=== PATIENT | female | born 2000 | race Caucasian/White ===

== ENCOUNTER 2020-05-08 17:21 | Inpatient (IN) | payer OTHER ==
[2020-05-08 18:22] LABS: APPEARANCE,URINE SLIGHTLY-CLOUDY; BILIRUBIN,URINE NEGATIVE (NEGATIVE); COLOR,URINE YELLOW; GLUCOSE, URINE NEGATIVE (NEGATIVE); KETONES,URINE NEGATIVE (NEGATIVE); LEUKOCYTE ESTERASE,URINE LARGE (NEGATIVE); NITRITE,URINE NEGATIVE (NEGATIVE); PROTEIN,URINE NEGATIVE (NEGATIVE); URINE SPECIFIC GRAVITY 1.008; UROBILINOGEN,URINE NEGATIVE mg/dL (<2.0)
[2020-05-08 18:46] LABS: URINE AMPHETAMINES SCREEN NEGATIVE; URINE BARBITURATES SCREEN NEGATIVE; URINE BENZODIAZEPINES SCREEN NEGATIVE; URINE COCAINE SCREEN NEGATIVE; URINE MARIJUANA (THC) SCREEN NEGATIVE; URINE METHADONE SCREEN NEGATIVE; URINE PHENCYCLIDINE SCREEN NEGATIVE
[2020-05-08] MEDS ORDERED: LIDOCAINE 1% INJ-PF (10 MG/ML) 30 ML SDV ONE (21:15)
[2020-05-08] MEDS ORDERED: MISOPROSTOL 0.2 MG TABLET ONE (21:15)
[2020-05-08] MEDS ORDERED: OXYTOCIN 10 UNIT/ML VIAL ONE (21:15)
[2020-05-08] MEDS ORDERED: OXYTOCIN/0.9 % SODIUM CHLORIDE 30 UNIT/500 ML RTUINJ ONE (21:15)
[2020-05-08] MEDS ORDERED: RINGERS SOLUTION,LACTATED 1,000 ML IV PRN (21:16)
[2020-05-08 22:01] LABS: ABSOLUTE LYMPHOCYTES (AUTO) 1.7 10^3/uL (0.5-4.7); ABSOLUTE NEUT (AUTO) 16.3 10^3/uL (1.7-8.2); BASOPHILS % (AUTO) 0.2 % (0-2); EOSINOPHILS % (AUTO) 0.1 % (0-6); HEMATOCRIT 38.5 % (36.0-47.0); HEMOGLOBIN 13.3 g/dL (12.0-15.5); LYMPHOCYTES % (AUTO) 8.9 % (13-45); MEAN CORPUSCULAR HEMOGLOBIN 28.7 pg (27.0-33.4); MEAN CORPUSCULAR HGB CONC 34.5 g/dL (32.0-36.0); MEAN CORPUSCULAR VOLUME 83 fl (80-97); MONOCYTES % (AUTO) 5.2 % (3-13); PLATELET COUNT 314 10^3/uL (150-450); RED BLOOD COUNT 4.63 10^6/uL (3.72-5.28); SEGMENTED NEUTROPHILS % (AUTO) 85.6 % (42-78); TOTAL CELLS COUNTED % (AUTO) 100 %
--- NOTE | 2020-05-09 00:12 | Delivery Summary ---
Del Sum A-C Datetime Report Generated by CPN: 05/09/2020 00:12 DELIVERY PERSONNEL DELIVERY PERSONNEL: [id number] Delivery Doctor:: Greg Cazares MD Labor and Delivery Nurse:: Jaqueline Covarrubias RNteam member Nurse:: Nancy Cobyuston, RN MATERNAL INFORMATION Delivery Anesthesia: None Medications After Delivery: Pitocin 30 Units in 500ml NS/D5W Maternal Complications: None LABOR SUMMARY EDC: 05/06/2020 00:00 No. Babies in Womb: 1 Attempted: No Labor Anesthesia: None LABOR INFORMATION Reason for Induction: Not Applicable Onset of Labor: 05/08/2020 18:13 Complete Dilatation: 05/08/2020 21:19 Oxytocin: N/A Group B Beta Strep: Negative Antibiotics # of Doses: n/a Name of Antibiotic Given: n/a Steroids Given: None Reason Steroids Not Administered: Not Applicable MEMBRANES Membranes Rupture Method: Spontaneous Rupture of Membranes: 05/08/2020 21:34 Length of Rupture (hr): 0.23 Amniotic Fluid Color: Heavy Meconium Amniotic Fluid Amount: Small Amniotic Fluid Odor: Normal STAGES OF LABOR Stage 1 hr: 3 Stage 1 min: 6 Stage 2 hr: 0 Stage 2 min: 29 Stage 3 hr: 0 Stage 3 min: 2 Total Time in Labor hr: 3 Total Time in Labor min: 37 VAGINAL DELIVERY Episiotomy: None (Annotations: Data stored by N on behalf of user) Laceration #1: Vaginal Laceration Extension #1: First Degree Laceration Repair: Not Applicable Sponge Count Correct: N/A Sharps Count Correct: Yes CSECTION DELIVERY Primary Indication: N/A CSection Incision: N/A BABY A INFORMATION Delivery Date/Time: 05/08/2020 21:48 Method of Delivery: Vaginal Nurse Controlled Delivery: No Born in Route : No : N/A Forceps: N/A Vacuum Extraction: N/A Shoulder Dystocia : No PRESENTATION/POSITION BABY A Presentation: Cephalic Cephalic Presentation: N/A Vertex Position: Left Occipital Anterior Breech Presentation: N/A PLACENTA INFORMATION BABY A Placenta Delivery Time : 05/08/2020 21:50 Placenta Method of Delivery: Spontaneous Placenta Status: Delivered SCORES BABY A Heart Rate 1 min: >100 bpm Resp Effort 1 min: Good Cry Reflex Irritability 1 min: Cough or Sneeze or Pulls Away Muscle Tone 1 min: Active Motion Color 1 min: Blue/Pale Resuscitation Effort 1 min: Tactile Stimulation SCORE 1 MIN: 8 Heart Rate 5 min: >100 bpm Resp Effort 5 min: Good Cry Reflex Irritability 5 min: Cough or Sneeze or Pulls Away Muscle Tone 5 min: Active Motion Color 5 min: Body [place], Extremities Blue Resuscitation Effort 5 min: Tactile Stimulation SCORE 5 MIN: 9 INFANT INFORMATION BABY A Gestational Age at Delivery: 40.2 Gestational Status: Full Term- 39- 40.6 Weeks Infant Outcome : Liveborn Condition : Stable Infant Sex: Female IDENTIFICATION BABY A Verification Date/Time: 05/08/2020 22:22 ID Band Number: [id number] Mother's Name Verified: Yes RN Verifying : CLAUS Billings Additional Verifying Personnel: Joseph Roy RN WEIGHT/LENGTH BABY A Birthweight (gm): 3374 Weight (lb): 7 Infant Weight (oz): 7 Infant Length (in): 19.50 Length (cm): 49.53 CORD INFORMATION BABY A No. Cord Vessels: 3 Nuchal Cord : N/A (Annotations: Data stored by [facility] on behalf of user) Infant Suction: Mouth ASSESSMENT BABY A Complications: None Respirations: Grunting Skin to Skin: Yes Skin to Skin Time (min): 5 Cattle Tester/ALS Called : No Care By: Elizabeth Covarrubias, RN Transferred To: Remains with Mother BABY B INFORMATION : N/A SIGNATURES Signature: with User ID: [email or web address]
--- NOTE | 2020-05-09 00:12 | Birth Certificate Data ---
Cert Data Datetime Report Generated by CPN: 05/09/2020 00:12 CERTIFICATE DATA Delivery Provider: Greg Cazares MD (05/08/2020 21:30:Jaqueline Covarrubias RN) 47a. Care: Yes (05/08/2020 21:30:Jaqueline Covarrubias RN) 48a. Number of Prev Live Births: 0 (05/08/2020 21:30:Jaqueline Covarrubias RN) 48b. Now Livin (05/08/2020 21:30:Jaqueline Covarrubias RN) 48c. Live Births Now : 0 (05/08/2020 21:30:QS system process) 48e. Losses: 0 (05/08/2020 21:30:Jaqueline Covarrubias RN) RISK FACTORS IN THIS 49c. Previous Births: 0 (05/08/2020 21:30:Jaqueline Debrahefka, RN) 49f. Previous Cesareans: 0 (05/08/2020 21:30:Jaqueline Marhefka, RN) Mother's Height 50b. Height Inches: 66 (05/08/2020 17:34:QS system process) Mother's Weight 51b. Weight at Delivery (lbs): 211 (05/08/2020 17:34:QS system process) Infections Present/Treated Results this Hospital Visit : Negative (05/08/2020 21:30:Jaqueline Covarrubias RN) Results this Hospital Visit: Negative (05/08/2020 21:30:Jaqueline Covarrubias RN) 53h. Mother Tested for HBsAG: No (05/08/2020 21:30:Jaqueline Covarrubias RN) 53i. Date Tested: 09/06/2019 00:00 (05/08/2020 21:30:Jaqueline Covarrubias RN) 53j. Test Result: Negative (05/08/2020 21:30:Jaqueline Covarrubias RN) Onset of Labor 56a. PROM >12 Hrs: 0.23 (05/08/2020 21:30:QS system process) 56b. Precipitous Labor <3 Hrs: 3 (05/08/2020 21:30:QS system process) 56c. Prolonged Labor > 20 Hrs: 3 (05/08/2020 21:30:QS system process) 57a. Induction of Labor: N/A (05/08/2020 21:30:Nancy Rosa RN) 57c. Non-Vertex Presentation A: N/A (05/08/2020 21:30:Jaqueline Covarrubias RN) 57d. Steroids - Lung Mat: None (05/08/2020 21:30:Jaqueline Covarrubias RN) 57d. Steroids - Lung Mat: Not Applicable (05/08/2020 21:30:Jaqueline Covarrubias RN) 57f. Mat [place] or Temp >100.4: 97.9 (05/08/2020 21:30:Nancy Rosa RN) 57g. Moderate/Heavy Meconium: Heavy Meconium (05/08/2020 21:34:Jaqueline Covarrubias RN) 57h. Intolerance of Labor: N/A (05/08/2020 21:30:Jaqueline Covarrubias RN) 57i. Epidural/Spinal Anesthesia: None (05/08/2020 21:30:Jaqueline Covarrubias RN) Method of Delivery 58a. Forceps - Unsuccessful A: N/A (05/08/2020 21:30:Jaqueline Covarrubias RN) 58b. Vacuum - Unsuccessful A: N/A (05/08/2020 21:30:Jaqueline Covarrubias RN) 58c. Presentation at 58c. Presentation at - A : N/A (05/08/2020 21:30:Jaqueline Covarrubias RN) 58c. Presentation at - A : N/A (05/08/2020 21:30:Jaqueline Covarrubias RN) 58c. Presentation at - A : Cephalic (05/08/2020 21:30:Jaqueline Covarrubias RN) Final Route and Method of Del 58d. Baby A Route/Delivery: Vaginal (05/08/2020 21:30:Jaqueline Covarrubias RN) 58e. Trial of Labor Attempted: No (05/08/2020 21:30:Jaqueline Covarrubias RN) 58e. Trial of Labor Attempted A: N/A (05/08/2020 21:30:Jaqueline Covarrubias RN) 58e. Trial of Labor Attempted B: N/A (05/08/2020 21:30:Jaqueline Marhefka, RN) Maternal Morbidity 59b. 3rd or 4th Degree Lacs: Vaginal (05/08/2020 21:30:Jerad HinesMD (WEB)) 59b. 3rd or 4th Degree Lacs: First Degree (05/08/2020 21:30:[facility]) Birthweight Baby A: 3374 (05/08/2020 21:30:Samantha Rangel RN) 60a. Pounds : 7 (05/08/2020 21:30:QS system process) 60b. Ounces: 7 (05/08/2020 21:30:QS system process) 61. GA at Delivery Baby A: 40.2 (05/08/2020 21:30:Jaqueline Covarrubias RN) : Full Term- 39- 40.6 Weeks (05/08/2020 21:30:QS system process) 62a. 5 Minute Baby A: 9 (05/08/2020 21:30:QS system process)
[2020-05-09] MEDS ORDERED: GLYCERIN/WITCH HAZEL LEAF 1 EACH MED..WIPE TP PRN (00:31)
[2020-05-09] MEDS ORDERED: BENZOCAINE/MENTHOL AEROSOL SPRAY 56 ML TOP PRN (00:31)
[2020-05-09] MEDS ORDERED: ACETAMINOPHEN WITH CODEINE #3 TABLET PO PRN ×2 (00:31)
[2020-05-09] MEDS ORDERED: ACETAMINOPHEN 650 MG SUPP.RECT PR PRN (00:31)
[2020-05-09] MEDS ORDERED: VARICELLA VACC/PF (1350 UNIT/0.5 ML) 0.5 ML VIAL SUBCUT PRN (00:31)
[2020-05-09] MEDS ORDERED: ACETAMINOPHEN 325 MG TABLET PO PRN (00:31)
[2020-05-09] MEDS ORDERED: MEASLES,MUMPS&RUBELLA VACC/PF 0.5 ML VIAL SUBCUT PRN (00:31)
[2020-05-09] MEDS ORDERED: DIPHENHYDRAMINE HCL 25 MG CAPSULE PO PRN (00:31)
[2020-05-09] MEDS ORDERED: FAMOTIDINE 20 MG TABLET PO PRN (00:31)
[2020-05-09] MEDS ORDERED: ZOLPIDEM TARTRATE 5 MG TABLET PO PRN (00:31)
[2020-05-09] MEDS ORDERED: MAGNESIUM HYDROXIDE SUSP 30 ML UDCUP PO PRN (00:31)
[2020-05-09] MEDS ORDERED: DIBUCAINE 1% OINTMENT 28 GM TP PRN (00:31)
[2020-05-09] MEDS ORDERED: MAG HYDROX/AL HYDROX/SIMETH SUSP 30 ML UDCUP PO PRN (00:31)
[2020-05-09] MEDS ORDERED: PSEUDOEPHEDRINE HCL 30 MG TABLET PO PRN (00:31)
[2020-05-09] MEDS ORDERED: DIPH/PERTUSS(ACELL)/TETANUS VAC/PF 0.5 ML SYR (>=10YO) IM PRN (00:31)
[2020-05-09] MEDS: IBUPROFEN 800 MG TABLET PO SCH ×3 (05:12→22:05)
[2020-05-09] MEDS: PRENATAL VITAMIN W DHA CAPSULE PO SCH (09:44)
[2020-05-09] MEDS: SENNOSIDES/DOCUSATE 8.6-50 MG 1 EACH TABLET PO SCH (09:44)
[2020-05-09] MEDS: DOCUSATE SODIUM 100 MG CAPSULE PO SCH ×2 (09:44→18:33)
[2020-05-09] MEDS: FERROUS SULFATE 325 MG TABLET PO SCH ×2 (09:44→18:33)
[2020-05-09] MEDS ORDERED: DSS PO SCH (10:00)
[2020-05-09] MEDS ORDERED: IRON PO SCH (10:00)
[2020-05-09] MEDS ORDERED: PNV PO SCH (10:00)
[2020-05-09] MEDS ORDERED: FOLATE PO SCH (10:00)
[2020-05-09] MEDS ORDERED: DHA PO SCH (10:00)
[2020-05-09] MEDS ORDERED: [UNRECOGNIZED DRUG - OTHER] PO SCH (10:00)
--- NOTE | 2020-05-09 10:44 | PDOC PROGRESS REPORT ---
Subjective-OB Progress Note for:: 05/09/20 - PP Day #1, doing well, no complaints, UOB, voiding, A+, Physical Exam (OB) Vital Signs: Temp Pulse Resp BP Pulse Ox 97.9 F 78 16 115/64 100 05/09/20 07:51 05/09/20 07:51 05/09/20 07:51 05/09/20 07:51 05/09/20 07:51 Intake & Output 05/08/20 05/09/20 05/10/20 06:59 06:59 06:59 Output Total 350 Balance -350 Weight 96.4 kg - General General Appearance: Appears well, Alert - PIH/Pre-Eclampsia DTR's: 2 + Clonus: Negative Headache: Absent Epigastric Pain: No Visual Changes: No - Maternal Morbidity 59. Maternal Morbidity (serious complications experinced by the mother as sociated with labor and delivery: None of the above - Lochia Lochia Amount: Scant < 10 ml Lochia Color: Rubra/Red - Abdomen Description: Soft Hernia Present: No Fundal Description: Firm, Midline Fundal Height: u/u - u/2 - Respiratory Respiratory Status: No respiratory distress - Abdominal Inspection: Normal Distension: No distension - Genitourinary Genitourinary Note: voiding - Extremities Upper extremity: Normal inspection Lower extremities: Normal inspection - Neurological Cognition: Normal Orientation: AAOx4 - Psychological Associated symptoms: Normal affect, Normal mood - Skin Skin Temperature: Warm Skin Moisture: Dry Objective-Diagnostic Laboratory: 05/08/20 21:41 05/08/20 05/08/20 05/08/20 17:26 21:41 21:41 WBC 19.0 H RBC 4.63 Hgb 13.3 Hct 38.5 MCV 83 MCH 28.7 MCHC 34.5 RDW 15.0 H Plt Count 314 Seg Neutrophils % 85.6 H Urine Color YELLOW Urine Appearance SLIGHTLY-CLOUDY Urine pH 7.0 Ur Specific [place] 1.008 Urine Protein NEGATIVE Urine Glucose (UA) NEGATIVE Urine Ketones NEGATIVE Urine Blood NEGATIVE Urine Nitrite NEGATIVE Ur Leukocyte Esterase LARGE H Blood Type A POSITIVE Antibody Screen NEGATIVE Assessment and Plan(PN) - Assessment and Plan (1) (normal spontaneous vaginal delivery) Is this a current diagnosis for this admission?: Yes - Time Spent with Patient Time with patient: Less than 15 minutes Medications reviewed and adjusted accordingly: Yes - Disposition Anticipated Discharge Disposition: Home, Self Care Anticipated Discharge Timeframe: within 24 hours
[2020-05-10] MEDS: IBUPROFEN 800 MG TABLET PO SCH (05:37)
[2020-05-10 06:03] LABS: HEMATOCRIT 34.7 % (36.0-47.0); HEMOGLOBIN 11.6 g/dL (12.0-15.5); MEAN CORPUSCULAR HGB CONC 33.6 g/dL (32.0-36.0); MEAN CORPUSCULAR VOLUME 84 fl (80-97); PLATELET COUNT 264 10^3/uL (150-450); RED BLOOD COUNT 4.15 10^6/uL (3.72-5.28); RED CELL DISTRIBUTION WIDTH 15.5 % (11.5-14.0); WHITE BLOOD COUNT 12.4 10^3/uL (4.0-10.5)
[2020-05-10 07:52] VITALS: BP 105/63
[2020-05-10] MEDS ORDERED: INFLUENZA QUAD (6MOS+) 2020-21 VAC 0.5 ML SYR IM ONE (08:00)
--- NOTE | 2020-05-10 09:00 | PDOC DISCHARGE SUMMARY ---
Impression - Admit/DC Date/PCP Admission Date/Primary Care Provider: 05/08/20 21:21 Discharge Date: 05/10/20 - PP day #2, doing well, A+. - Discharge Diagnosis (1) (normal spontaneous vaginal delivery) Is this a current diagnosis for this admission?: Yes (2) Normal course Is this a current diagnosis for this admission?: Yes - Additional Information Resuscitation Status: Full Code Discharge Diet: As Tolerated, Regular Discharge Activity: Activity As Tolerated, No Lifting Over 10 Pounds, Pelvic Rest Prescriptions: Ibuprofen [Motrin 800 mg Tablet] 800 mg PO Q8 #60 tablet Home Medications: Pnv 102/Iron/Folate 1/Dss/Dha [Vitafol Fe+ Docusate Combo Pck] 1 each PO DAILY 05/08/20 Ibuprofen [Motrin 800 mg Tablet] 800 mg PO Q8 #60 tablet 05/10/20 HPI Reason(s) for Admission: Onset of Labor Procedures: Ultrasound Intrapartum Procedure(s): Spontaneous Vaginal Delivery Complication(s): Laceration-Vaginal Laceration-Degree: 1st Hospital Course 59. Maternal Morbidity (serious complications experinced by the mother associated with labor and delivery: None of the above Results Laboratory Results: WBC 12.4 10^3/uL (4.0-10.5) H 05/10/20 05:34 RBC 4.15 10^6/uL (3.72-5.28) 05/10/20 05:34 Hgb 11.6 g/dL (12.0-15.5) L 05/10/20 05:34 Hct 34.7 % (36.0-47.0) L 05/10/20 05:34 MCV 84 fl (80-97) 05/10/20 05:34 MCH 28.0 pg (27.0-33.4) 05/10/20 05:34 MCHC 33.6 g/dL (32.0-36.0) 05/10/20 05:34 RDW 15.5 % (11.5-14.0) H 05/10/20 05:34 Plt Count 264 10^3/uL (150-450) 05/10/20 05:34 Lymph % (Auto) 8.9 % (13-45) L 05/08/20 21:41 [place] % (Auto) 5.2 % (3-13) 05/08/20 21:41 Eos % (Auto) 0.1 % (0-6) 05/08/20 21:41 Baso % (Auto) 0.2 % (0-2) 05/08/20 21:41 Absolute Neuts (auto) 16.3 10^3/uL (1.7-8.2) H 05/08/20 21:41 Absolute Lymphs (auto) 1.7 10^3/uL (0.5-4.7) 05/08/20 21:41 Absolute Monos (auto) 1.0 10^3/uL (0.1-1.4) 05/08/20 21:41 Absolute Eos (auto) 0.0 10^3/uL (0.0-0.6) 05/08/20 21:41 Absolute Basos (auto) 0.0 10^3/uL (0.0-0.2) 05/08/20 21:41 Seg Neutrophils % 85.6 % (42-78) H 05/08/20 21:41 Urine Color YELLOW 05/08/20 17:26 Urine Appearance SLIGHTLY-CLOUDY 05/08/20 17:26 Urine pH 7.0 (5.0-9.0) 05/08/20 17:26 Ur Specific [place] 1.008 05/08/20 17:26 Urine Protein NEGATIVE mg/dL (NEGATIVE) 05/08/20 17:26 Urine Glucose (UA) NEGATIVE mg/dL (NEGATIVE) 05/08/20 17:26 Urine Ketones NEGATIVE mg/dL (NEGATIVE) 05/08/20 17:26 Urine Blood NEGATIVE (NEGATIVE) 05/08/20 17:26 Urine Nitrite NEGATIVE (NEGATIVE) 05/08/20 17:26 Urine Bilirubin NEGATIVE (NEGATIVE) 05/08/20 17:26 Urine Urobilinogen NEGATIVE mg/dL (<2.0) 05/08/20 17:26 Ur Leukocyte Esterase LARGE (NEGATIVE) H 05/08/20 17:26 Urine Ascorbic Acid NEGATIVE (NEGATIVE) 05/08/20 17:26 Urine Opiates Screen NEGATIVE 05/08/20 17:26 Urine Methadone Screen NEGATIVE 05/08/20 17:26 Ur Barbiturates Screen NEGATIVE 05/08/20 17:26 Ur Phencyclidine Scrn NEGATIVE 05/08/20 17:26 Ur Amphetamines Screen NEGATIVE 05/08/20 17:26 U Benzodiazepines Scrn NEGATIVE 05/08/20 17:26 Urine Cocaine Screen NEGATIVE 05/08/20 17:26 U Marijuana (THC) Screen NEGATIVE 05/08/20 17:26 RPR NONREACTIVE (NONREACTIVE) 05/08/20 21:41 Blood Type A POSITIVE 05/08/20 21:41 Antibody Screen NEGATIVE 05/08/20 21:41 Plan Plan of Treatment: d/c home. f/up with [facility] in 4 wks for PP check Time Spent: Less than 30 Minutes
[2020-05-10] MEDS: PRENATAL VITAMIN W DHA CAPSULE PO SCH (10:28)
[2020-05-10] MEDS: DOCUSATE SODIUM 100 MG CAPSULE PO SCH (10:28)
[2020-05-10] MEDS: SENNOSIDES/DOCUSATE 8.6-50 MG 1 EACH TABLET PO SCH (10:28)
[2020-05-10] MEDS: FERROUS SULFATE 325 MG TABLET PO SCH (10:28)
== END 2020-05-10 13:10 | disposition home or self-care (01) | DRG 807 ==
LOC: LC 17:21 → LR 21:21 → 2S 05-09 00:20
PROVIDERS: ADMIT Obstetrics & Gynecology Gynecology; ATTEND Specialist
PROC: 10E0XZZ Delivery of Products of Conception, External Approach (ICD-10-PCS; principal; 2020-05-08)
PROC: 3E02340 Introduction of Influenza Vaccine into Muscle, Percutaneous Approach (ICD-10-PCS; 2020-05-10)
DX: O77.0 Labor and delivery complicated by meconium in amniotic fluid (principal); Z37.0 Single live birth; O70.0 First degree perineal laceration during delivery; Z3A.40 40 weeks gestation of pregnancy; Z23 Encounter for immunization
CPT/HCPCS: 36415; 80307; 81005; 85025; 85027; 86592; 86850; 86900; 86901; 90471; 90686; G0008; J2590; J3490